=== PATIENT | female | born 1985 | race Caucasian/White ===

== ENCOUNTER 2022-07-11 03:27 | Emergency (ER) | payer OTHER ==
[2022-07-11] MEDS ORDERED: NA CHLORIDE 0.9% 1,000 ML ONE (03:47)
[2022-07-11 04:02] LABS: Absolute Lymphocytes (CBC) 2.7 K/uL (0.7-4.9); Hematocrit 38.6 % (36.0-45.0); Lymphocytes % 41.2 % (15.3-44.8); MCV 88.9 fL (80-100); MPV 7.4 fL (7.6-11.3); RBC Red Blood Cell Count 4.35 M/uL (3.86-4.86)
[2022-07-11 04:32] LABS: Albumin 2.9 g/dL (3.4-5.0); Bilirubin Total 0.4 mg/dL (0.2-1.0); Potassium 3.7 mEq/L (3.5-5.1); Protein, Total 7.1 g/dL (6.4-8.2)
[2022-07-11 04:49] LABS: Urine Blood 3+ (Negative); Urine Glucose Negative (Negative); Urine Protein 1+ (Negative); Urine Specific Gravity 1.015 (1.005-1.030)
[2022-07-11 04:52] LABS: Urine Specific Gravity/Preg 1.015 (1.005-1.030)
[2022-07-11 05:16] LABS: Specific Gravity 1.015 (1.005-1.030); Urine Bacteria <20 /HPF (<20); Urine Bilirubin NEGATIVE (Negative); Urine Blood 3+ (OVER) (Negative); Urine Clarity Clear (Clear); Urine Color Colorless (Yellow); Urine Glucose NEGATIVE (Negative); Urine Protein TRACE (Negative); Urine RBC <5 /HPF (None Seen); Urine Urobilinogen Normal (Normal); Urine pH 6.5 (5.0-7.0)
--- NOTE | 2022-07-11 07:17 | EDPHYS ---
Physician Documentation [facility] Name: Tiffany Jacobo Age: 37 yrs Sex: Female : 1985 Arrival Date: 07/11/2022 Time: 03:31 Bed 6 Private MD: ED Physician Rodriguez Mixon HPI: 07/11 03:42 This 37 yrs old Female presents to ER via Unassigned with complaints of sp4 Abdominal Pain, Post Surgical Pain. 05:20 37-year-old female presents with acute epigastric pain and nausea starting just prior sp4 to arrival on awakening, patient states that she had on 06/30/2022 and has delivered twins via at 35 weeks EGA. Patient has no history of gallbladder problems and no history of abdominal surgery besides . Patient denied vomiting. Historical: - Allergies: 03:44 No Known Allergies; kl - Home Meds: 03:44 None [Active]; kl - PMHx: 03:44 None; kl - PSHx: 03:44 section; kl - Immunization history:: Adult Immunizations not up to date. - Social history:: Smoking status: Patient denies any tobacco usage or history of. - Family history:: not pertinent. ROS: 05:20 Constitutional: Negative for fever, chills, and weight loss, Eyes: Negative for injury, sp4 pain, redness, and discharge, ENT: Negative for injury, pain, and discharge, Neck: Negative for injury, pain, and swelling, Cardiovascular: Negative for chest pain, palpitations, and edema, Respiratory: Negative for shortness of breath, cough, wheezing, and pleuritic chest pain, Abdomen/GI: Negative for vomiting, diarrhea, and constipation, positive for epigastric abdominal pain and nausea Back: Negative for injury and pain, : Negative for injury, bleeding, discharge, and swelling, MS/Extremity: Negative for injury and deformity, Skin: Negative for injury, rash, and discoloration, Neuro: Negative for headache, weakness, numbness, tingling, and seizure, Psych: Negative for depression, anxiety, Allergy/Immunology: Negative for hives, rash, and allergies Endocrine: Negative for neck swelling, polydipsia, polyuria, polyphagia, and weight changes Hematologic/Lymphatic: Negative for swollen nodes, abnormal bleeding, and unusual bruising Exam: 05:20 Constitutional: This is a well developed, well nourished patient who is awake, alert, sp4 and in no acute distress. Head/Face: Normocephalic, atraumatic. Eyes: Pupils equal round and reactive to light, extra-ocular motions intact. Lids and lashes normal. Conjunctiva and sclera are not injected. Cornea within normal limits. Periorbital areas with no swelling, redness, or edema. ENT: Nares patent. No nasal discharge, no septal abnormalities noted. Tympanic membranes are normal and external auditory canals are clear. Oropharynx with no redness, swelling, or masses, exudates, or evidence of obstruction, uvula midline. Mucous membranes moist. Neck: Trachea midline, no thyromegaly or masses palpated, and no cervical lymphadenopathy. Supple, full range of motion without nuchal rigidity, or vertebral point tenderness. No Meningismus. Chest/axilla: Normal chest wall appearance and motion. Nontender with no deformity. No lesions are appreciated. Cardiovascular: Regular rate and rhythm with a normal S1 and S2. No gallops, murmurs, or rubs. Normal PMI, no JVD. No pulse deficits. Respiratory: Lungs have equal breath sounds bilaterally, clear to auscultation and percussion. No rales, rhonchi or wheezes noted. No increased work of breathing, no retractions or nasal flaring. Abdomen/GI: Soft, with normal bowel sounds. No distension or tympany. No guarding or rebound. Epigastric tenderness without peritoneal signs Back: No spinal tenderness. No costovertebral tenderness. Skin: Warm, dry with normal turgor. Normal color with no rashes, no lesions, and no evidence of cellulitis. MS/ Extremity: Pulses equal, no cyanosis. Neurovascular intact. Full, normal range of motion. Neuro: Awake and alert, GCS 15, oriented to person, place, time, and situation. Cranial nerves II-XII grossly intact. Motor strength 5/5 in all extremities. Sensory grossly intact. Psych: Awake, alert, with orientation to person, place and time. Behavior, mood, and affect are within normal limits Vital Signs: 03:42 BP 122 / 88; Resp 18; Temp 97.7(O); Weight 68.95 kg (R); Height 5 ft. 8 in. ; Pain 0/10;kl 03:58 BP 115 / 99; Pulse 68; Resp 18 S; Pulse Ox 99% on R/A; ha1 04:30 BP 116 / 80; Pulse 64; Resp 16 S; Pulse Ox 98% on R/A; ha1 05:00 BP 120 / 82; Pulse 64; Resp 15 S; Pulse Ox 98% on R/A; ha1 06:00 BP 127 / 65; Pulse 64; Resp 15 S; Pulse Ox 96% on R/A; ha1 03:42 Body Mass Index 23.11 (68.95 kg, 172.72 cm) kl 03:42 Pain Scale: Adult kl MDM: 03:50 Patient medically screened. sp4 05:20 Differential Diagnosis Cholecystitis, pancreatitis, colitis, enteritis, gastritis. Data sp4 reviewed: vital signs, lab test result(s), CBC, electrolytes, hepatic panel, urinalysis, UPT: radiologic studies, CT scan, ultrasound. ED course: There is no evidence of cholecystitis based on ultrasound report, currently awaiting CAT scan. 05:54 ED course: Awaiting CT report. sp4 07:13 ED course: CT abdomen pelvis revealed no acute inflammatory process, labs unremarkable, sp4 urine contains some blood secondary to lochia after recent delivery . 07/11 03:41 Order name: IV Saline Lock; Complete Time: 03:56 sp4 07/11 03:41 Order name: Labs collected and sent; Complete Time: 03:56 sp4 07/11 03:41 Order name: US Abdomen Limited sp4 07/11 03:41 Order name: Urine Test (obtain specimen); Complete Time: 04:41 sp4 07/11 04:50 Order name: Urine --Ancillary (enter results) ds4 07/11 03:41 Order name: CBC with Diff; Complete Time: 05:19 sp4 07/11 03:41 Order name: CMP; Complete Time: 05:19 sp4 07/11 03:41 Order name: Lipase; Complete Time: 05:19 sp4 07/11 03:41 Order name: Urinalysis W/Microscopic; Complete Time: 05:19 sp4 07/11 03:41 Order name: CT Abd/Pelvis - IV Contrast Only sp4 07/11 04:50 Order name: Urine Dipstick-Ancillary; Complete Time: 05:19 EDMS 03/17 04:52 Order name: Urine --Ancillary; Complete Time: 05:19 EDMS Administered Medications: 03:56 Drug: NS 0.9% IV 1000 ml Route: IV; Rate: 1 bolus; Site: right forearm; ha1 Point of Care Testing: Urine : 04:41 hCG Reading: Negative; as6 Disposition Summary: 07/11/22 07:16 Discharge Ordered Location: Home sp4 Problem: new sp4 Symptoms: have improved sp4 Condition: Stable sp4 Diagnosis - Epigastric pain sp4 - Acute upper abdominal pain sp4 Followup: sp4 - With: Private Physician - When: 1 - 2 days - Reason: Re-evaluation by your physician Forms: - Medication Reconciliation Form sp4 - Thank You Letter sp4 - Antibiotic Education sp4 - Prescription Opioid Use sp4 Signatures: Dispatcher [employer] Kaylen Dawson RN RN kl Ayala, Heidy, RN RN [facility] Rodriguez Mixon MD MD sp4
--- NOTE | 2022-07-11 07:17 | ER ---
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 Coronavirus screen: Vaccine status: Patient reports receiving the 2nd dose of the covid vaccine. Ebola Screen: Patient negative for fever greater than or equal to 101.5 degrees Fahrenheit, and additional compatible Ebola Virus Disease symptoms. Initial Sepsis Screen: Does the patient meet any 2 criteria? No. Patient's initial sepsis screen is negative. Does the patient have a suspected source of infection? No. Patient's initial sepsis screen is negative. Risk Assessment: Do you want to hurt yourself or someone else? Patient reports desire/thoughts of hurting themselves or someone else. Provider notified. 03:42 Method Of Arrival: Ambulatory 03:42 Acuity: BRIDGER 3 03:44 Note c section 06/30/22. Triage Assessment: 03:44 General: Appears in no apparent distress. Behavior is calm, cooperative. Pain: kl Complains of pain in epigastric area. GI: Abd is soft Abdomen is tender to palpation in right lower quadrant. Historical: - Allergies: 03:44 No Known Allergies; kl - Home Meds: 03:44 None [Active]; kl - PMHx: 03:44 None; - PSHx: 03:44 section; kl - Immunization history:: Adult Immunizations not up to date. - Social history:: Smoking status: Patient denies any tobacco usage or history of. - Family history:: not pertinent. Screenin:32 Abuse screen: Denies threats or abuse. Denies injuries from another. Nutritional ha1 screening: No deficits noted. Tuberculosis screening: No symptoms or risk factors identified. Assessment: 03:31 General: Appears comfortable, Behavior is calm, cooperative. Pain: Denies pain. Neuro: ha1 Level of Consciousness is awake, alert, obeys commands, Oriented to person, place, time, situation. Cardiovascular: Capillary refill < 3 seconds Patient's skin is warm and dry. Respiratory: Airway is patent Respiratory effort is even, unlabored, Respiratory pattern is regular, symmetrical. GI: Abdomen is flat, non-distended, Bowel sounds present X 4 quads. Reports a mid epigastric pain that woke her of her sleep. pain was relieved with Tylenol. GI: Abd is soft and non tender X 4 quads. : No signs and/or symptoms were reported regarding the genitourinary system. EENT: No signs and/or symptoms were reported regarding the EENT system. Derm: Skin is healthy with good turgor, Skin is moist, Skin is normal. Musculoskeletal: Circulation, motion, and sensation intact. Range of motion: intact in all extremities. 04:30 Reassessment: Patient and/or family updated on plan of care and expected duration. Pain ha1 level reassessed. Patient is alert, oriented x 3, equal unlabored respirations, skin warm/dry/pink. Patient denies pain at this time. 05:20 Reassessment: Patient and/or family updated on plan of care and expected duration. Pain ha1 level reassessed. Patient is alert, oriented x 3, equal unlabored respirations, skin warm/dry/pink. Patient denies pain at this time. 06:20 Reassessment: Patient and/or family updated on plan of care and expected duration. Pain ha1 level reassessed. Patient is alert, oriented x 3, equal unlabored respirations, skin warm/dry/pink. Patient denies pain at this time. 07:00 Reassessment: RECD REPORT FROM NICHOLAS LEAHY. 37YO FEMALE P/W EPIGASTRIC PAIN. CT RESULTS bp PENDING. Vital Signs: 03:42 BP 122 / 88; Resp 18; Temp 97.7(O); Weight 68.95 kg (R); Height 5 ft. 8 in. ; Pain 0/10;kl 03:58 BP 115 / 99; Pulse 68; Resp 18 S; Pulse Ox 99% on R/A; ha1 04:30 BP 116 / 80; Pulse 64; Resp 16 S; Pulse Ox 98% on R/A; ha1 05:00 BP 120 / 82; Pulse 64; Resp 15 S; Pulse Ox 98% on R/A; ha1 06:00 BP 127 / 65; Pulse 64; Resp 15 S; Pulse Ox 96% on R/A; ha1 03:42 Body Mass Index 23.11 (68.95 kg, 172.72 cm) kl 03:42 Pain Scale: Adult kl ED Course: 03:31 Patient arrived in ED. ja2 03:32 Patient has correct armband on for positive identification. Placed in gown. Bed in low ha1 position. Call light in reach. Side rails up X 1. 03:40 Rodriguez Mixon MD is Attending Physician. sp4 03:40 Inserted saline lock: 20 gauge in right forearm, using aseptic technique. Blood ha1 collected. 03:44 Triage completed. kl 04:17 US Abdomen Limited In Process Unspecified. EDMS 04:35 Nicholas Burgess, RN is Primary Nurse. ha1 05:28 CT Abd/Pelvis - IV Contrast Only In Process Unspecified. EDMS 07:14 Primary Nurse role handed off by Nicholas Burgess, TOSIN bp 07:14 Valentino Holland, RN is Primary Nurse. bp Administered Medications: 03:56 Drug: NS 0.9% IV 1000 ml Route: IV; Rate: 1 bolus; Site: right forearm; ha1 Point of Care Testing: Urine : 04:41 hCG Reading: Negative; as6 Outcome: 07:16 Discharge ordered by MD. [email or web address] Signatures: Dispatcher [employer] Kaylen Dawson RN RN kl Peltier, Brian, RN Amalia Aguayo Ashby, RN RN as6 Nicholas Burgess RN RN ha1 Rodriguez Mixon MD MD sp4
[2022-07-11 08:22] VITALS: TEMP 97.7
[2022-07-11 08:27] VITALS: BP 127/65; O2SAT 96
--- NOTE | 2022-07-11 20:13 | RAD REPORT ---
EXAM DESCRIPTION: US - Abdomen Exam Limited - 07/11/2022 4:16 am COMPARISON: None. CLINICAL HISTORY: [facility] MAIN ABD PAIN TECHNIQUE: Grayscale and color Doppler images of the gallbladder are provided for evaluation. FINDINGS: The gallbladder demonstrates a small amount of sludge. Gallbladder wall thickness measur es 3 mm. No intrahepatic biliary dilatation. The common bile duct measures 2 mm. IMPRESSION: No evidence of cholecystitis. Electronically signed by: Karlos Macdonald MD 07/11/2022 5:12 AM CDT Due to temporary technical issues with the PACS/Fluency reporting system, reports are being signed by the in house radiologists without review as a courtesy to insure prompt reporting. The interpreting radiologist is fully responsible for the content of the report.
--- NOTE | 2022-07-11 20:17 | RAD REPORT ---
EXAM DESCRIPTION: CT - Abdomen Pelvis W Contrast - 07/11/2022 6:48 am CLINICAL HISTORY: EPIGASTRIC PAIN COMPARISON: None. TECHNIQUE: CT ABDOMEN PELVIS WITH IV CONTRAST on 07/11/2022 3:41 AM CDT This exam was performed according to our departmental dose-optimization program, which includes autom ated exposure control, adjustment of the mA and/or kV according to patient size and/or use of iterati ve reconstruction technique. FINDINGS: Lower lungs are clear. Abdomen: The liver is normal in appearance. There is no biliary dilatation. Gallbladder is normal in appearance. The spleen is enlarged measuring 15.6 cm. Pancreas is unremarkable. There is moderately e nlarged. The adrenal glands and kidneys are unremarkable. Abdominal aorta is normal in course and caliber without aneurysm. There is no free air. There is no r etroperitoneal adenopathy. Pelvis: There is no bowel obstruction. Urinary bladder is unremarkable. There is no free fluid. Appen bindu is normal. Skeleton: There are no acute osseous findings. No suspicious bony lesions. IMPRESSION: No acute inflammatory process. Enlarged uterus. Recommend ultrasound if patient is not in state. Electronically signed by: Surinder Farris MD 07/11/2022 6:30 AM CDT Due to temporary technical issues with the PACS/Fluency reporting system, reports are being signed by the in house radiologists without review as a courtesy to insure prompt reporting. The interpreting radiologist is fully responsible for the content of the report.
== END 2022-07-11 07:39 | disposition home or self-care (01) ==
LOC: ER 03:27
DX: R10.13 Epigastric pain (principal); R10.10 Upper abdominal pain, unspecified; Z98.890 Other specified postprocedural states
CPT/HCPCS: 96361; 85025; 81001; 36415; 81025; 81003; 83690; 80053; 74177; 76705; 96360; 99284; Q9967; J7030